=== PATIENT | female | born 1985 | race African-American/Black ===

== ENCOUNTER 2016-09-14 18:55 | Emergency (ER) | payer OTHER ==
--- NOTE | ~2016-09-14 | US61 ---
[facility] A Service of [facility] RADIOLOGY TEXT RESULTS PATIENT: PANCHO BETANCUR LOCATION: [facility] : [birth year] UNIT #: [id number] AGE: [address]: Andrews Villavicencio MD SEX: F ORDER DR: [id number] [facility] [address] [place], [place] [address] [id number] E MR#: [id number] Acc #: [id number] NAME: PANCHO BETANCUR : 1985 SEX: F STUDY DATE/TIME: 09/14/2016 20:00 UNIT: [facility] ROOM: STUDY DESCRIPTION: US /Mat <14Wk / Attending Physician: Marky Villavicencio M.D. Ordering Physician: Ed Doctor [id number] [facility] Primary Care Physician: Roe Grover Jr., A.P.R.N. MEDICAL IMAGING REPORT This report is preliminary unless electronic signature is present EXAM Ultrasound pelvis, early assessment, 09/14/2016 HISTORY 31-year-old female in the ED complaining of abdomen pain, check complaining of 2-day history of low abdomen pain during early . TECHNIQUE Pelvic ultrasound examination was performed transabdominally. FINDINGS The examination shows a left adnexal region gestational sac with a living embryo, gestational age of approximately 9 weeks, 2 days with embryonic heart rate of 82 beats per minute. The sac is positioned between the uterus and left ovary. The endometrial cavity is empty with no visible sac or fluid, uterus is displaced to the right of midline. The findings are highly concerning for left tubal ectopic . Despite the advanced gestational age, little to no free fluid is visible within the pelvis. The right ovary and left ovary each appear normal. I have discussed the findings by telephone with Dr. Villavicencio in the ED prior to this dictation at 20:45 hours on 09/14/2016. IMPRESSION Ultrasound findings highly concerning for advanced stage left tubal ectopic at about 9 weeks. Living gestation with embryonic heart rate of 82 beats per minute positioned between the left uterus and left ovary. No significant pelvic hematoma. Endometrial cavity appears empty. STAT * RESULT [facility] A Service of [facility] RADIOLOGY TEXT RESULTS PATIENT: PANCHO BETANCUR LOCATION: [facility] : [birth year] UNIT #: [id number] AGE: [address]: Andrews Villavicencio MD SEX: F ORDER DR: Dictated by... Willy Olson M.D. THIS IS AN ELECTRONICALLY VERIFIED REPORT Willy Olson M.D. at 09/14/2016 10:02 PM Aliza TD: 09/14/2016 21:00 JOB #: [id number] MEDICAL IMAGING REPORT Page 1 of 1 COPY
[2016-09-14 19:33] LABS: URINE SOURCE CLEAN CATCH
[2016-09-14 19:53] LABS: BASOPHIL% 0.5 % (0-2.5); EOSINOPHIL# 0.2 X10e3 (0-0.7); EOSINOPHIL% 2.7 % (0.0-7.0); HEMATOCRIT 37.6 % (35.0-45.0); HEMOGLOBIN 12.7 gm/dL (12.0-16.0); LYMPHOCYTE# 1.5 X10e3 (1.0-3.5); LYMPHOCYTE% 20.8 % (17.0-45.0); MEAN CELL VOLUME 89.2 FL (83-96); MEAN CORPUSCULAR HGB CONC 33.7 g/dL (30-36); MEAN PLATELET VOLUME 9.1 FL (6.5-11.5); MONOCYTE# 0.4 X10e3 (0-1.0); MONOCYTE% 6.3 % (3.0-12.0); NEUTROPHIL# 4.9 X10e3 (1.5-7.1); NEUTROPHIL% 69.7 % (40-75); PLATELET COUNT 231 X10e3 (140-420); RED BLOOD COUNT 4.22 X10e (3.90-5.30); RED CELL DISTRIBUTION WIDTH 13.1 % (11.0-15.5); WHITE BLOOD COUNT 7.1 X10e3 (4.0-10.5)
[2016-09-14 19:54] LABS: DIFF IND NO
[2016-09-14 19:55] LABS: URINE APPEARANCE CLEAR; URINE BILIRUBIN NEG (NEG); URINE BLOOD NEG (NEG); URINE COLOR YELLOW; URINE GLUCOSE NEG (NEG); URINE KETONE TRACE (NEG); URINE LEUKOCYTE ESTERASE 2+ (NEG); URINE NITRATE NEG (NEG); URINE PROTEIN NEG (NEG); URINE SPECIFIC GRAVITY 1.028 (1.003-1.035)
[2016-09-14 19:57] LABS: CULTURE INDICATED? YES; URINE BACTERIA AUWI 1+ (NEGATIVE); URINE SQUAMOUS EPITHELIAL CELL FEW /[HPF]
[2016-09-14 20:24] LABS: BUN/CREATININE RATIO 13.33; CALCIUM SERUM 8.7 mg/dL (8.4-10.2); CREATININE SERUM 0.6 mg/dL (0.6-1.4); GLOM FILT RATE Estimated 141.8 mL/min (>60); POTASSIUM 3.8 mmol/L (3.5-5.1)
== END 2016-09-14 23:35 | disposition short-term general hospital (02) ==
LOC: CED 18:55
PROVIDERS: Emergency Medicine
DX: O00.10 Tubal pregnancy without intrauterine pregnancy (principal); G40.909 Epilepsy, unspecified, not intractable, without status epilepticus; F17.210 Nicotine dependence, cigarettes, uncomplicated
CPT/HCPCS: 36415; 76801; 80048; 81003; 84702; 84703; 85025; 87086; 96361; 96374; 99284; J2550

== ENCOUNTER 2016-09-19 02:38 | Emergency (ER) | payer OTHER ==
[~2016-09-19] VITALS: Ht 170.2 cm; Wt 72.6 kg
--- NOTE | ~2016-09-19 | CT2 ---
[facility] A Service of [facility] RADIOLOGY TEXT RESULTS PATIENT: PANCHO BETANCUR LOCATION: [facility] : 87 UNIT #: [id number] AGE: [address]: Vamshi Bonilla DO SEX: F ORDER DR: [id number] [facility] [address] [place], [place] [address] [id number] E MR#: [id number] Acc #: [id number] NAME: PANCHO BETANCUR : 1985 SEX: F STUDY DATE/TIME: 09/19/2016 4:15 UNIT: [facility] ROOM: STUDY DESCRIPTION: CT Abd and Pelv W Cont Attending Physician: Vamshi Bonilla D.O. Ordering Physician: Vamshi Bonilla D.O. Primary Care Physician: Roe Grover Jr., A.P.R.N. MEDICAL IMAGING REPORT This report is preliminary unless electronic signature is present EXAM CT abdomen and pelvis with contrast. INDICATIONS Painful urination for the past week with generalized abdominal pain. PROCEDURE Contrast-enhanced CT of the abdomen and pelvis. This CT exam was performed with one or more of the following radiation dose reduction techniques: automatic exposure control, adjustment of mA and/or kV according to patient size, and iterative reconstruction. COMPARISON None. FINDINGS Abdomen with contrast: Included lung bases are clear. Liver enlarged measuring 21.1 cm. Spleen, kidneys, adrenal glands, pancreas, gallbladder show no acute abnormalities. Bowel loops are nondilated. Moderate colonic stool. Appendix is not well seen on this study. Pelvis with contrast: No pelvic mass. No aggressive appearing bone lesion. No appreciable bladder wall thickening. IMPRESSION 1. No definite acute findings. 2. Hepatomegaly. Dictated by... Marky Soliz M.D. [facility] A Service of [facility] RADIOLOGY TEXT RESULTS PATIENT: PANCHO BETANCUR LOCATION: [facility] : 87 UNIT #: [id number] AGE: [address]: Hottman,Vamshi M DO SEX: F ORDER DR: THIS IS AN ELECTRONICALLY VERIFIED REPORT Marky Soliz M.D. at 09/19/2016 10:00 PM TORI/[place] TD: 09/19/2016 10:34 JOB #: [id number] MEDICAL IMAGING REPORT Page 1 of 1 COPY
[2016-09-19 03:31] LABS: URINE SOURCE CLEAN CATCH
[2016-09-19 03:38] LABS: BASOPHIL% 0.6 % (0-2.5); EOSINOPHIL# 0.1 X10e3 (0-0.7); EOSINOPHIL% 2.2 % (0.0-7.0); HEMATOCRIT 34.4 % (35.0-45.0); HEMOGLOBIN 11.5 gm/dL (12.0-16.0); LYMPHOCYTE# 0.9 X10e3 (1.0-3.5); LYMPHOCYTE% 23.6 % (17.0-45.0); MEAN CELL VOLUME 89.3 FL (83-96); MEAN CORPUSCULAR HGB CONC 33.6 g/dL (30-36); MEAN PLATELET VOLUME 8.6 FL (6.5-11.5); MONOCYTE# 0.3 X10e3 (0-1.0); MONOCYTE% 7.2 % (3.0-12.0); NEUTROPHIL# 2.7 X10e3 (1.5-7.1); NEUTROPHIL% 66.4 % (40-75); PLATELET COUNT 211 X10e3 (140-420); RED BLOOD COUNT 3.85 X10e (3.90-5.30)
[2016-09-19 03:41] LABS: DIFF IND NO
[2016-09-19 03:45] LABS: URINE APPEARANCE CLEAR; URINE BILIRUBIN NEG (NEG); URINE BLOOD 3+ (NEG); URINE COLOR RED; URINE GLUCOSE NEG (NEG); URINE KETONE NEG (NEG); URINE LEUKOCYTE ESTERASE 2+ (NEG); URINE NITRATE NEG (NEG); URINE PROTEIN 2+ (NEG)
[2016-09-19 03:48] LABS: CULTURE INDICATED? YES; URBCS1 AUWI INNUM /[HPF] (0-2); URINE BACTERIA AUWI NEG (NEGATIVE); URINE SQUAMOUS EPITHELIAL CELL OCC /[HPF]
[2016-09-19 04:01] LABS: ALBUMIN SERUM 3.4 g/dL (3.5-5.0); ALKALINE PHOSPHATASE 55 U/L (32-92); ALT (SGPT) 42 U/L (10-40); AST (SGOT) 20 U/L (10-42); BILIRUBIN,TOTAL 0.6 mg/dL (0.2-2.0); BLOOD UREA NITROGEN 9 mg/dL (9-23); BUN/CREATININE RATIO 11.25; CALCIUM SERUM 8.3 mg/dL (8.4-10.2); CARBON DIOXIDE 26 mmol/L (22-31); CHLORIDE 103 mmol/L (100-111); CREATININE SERUM 0.8 mg/dL (0.6-1.4); GLOM FILT RATE Estimated 114.8 mL/min (>60); GLUCOSE FASTING 100 mg/dL (70-110); PROTEIN TOTAL SERUM 7.1 g/dL (6.0-8.3); SODIUM 133 mmol/L (135-145)
[2016-09-19 04:02] LABS: BILIRUBIN, DIRECT <0.1 mg/dL (0.0-0.2); BILIRUBIN,INDIRECT 0.5 mg/dL (0.0-0.9)
[2016-09-21 00:47] LABS: CHLAMYDIA TRACH Not Detected (Not Detected); N GONOR Not Detected (Not Detected)
== END 2016-09-19 05:55 | disposition home or self-care (01) ==
LOC: CED 02:38
PROVIDERS: Emergency Medicine
DX: G89.18 Other acute postprocedural pain (principal); R10.2 Pelvic and perineal pain; N99.820 Postprocedural hemorrhage of a genitourinary system organ or structure following a genitourinary system procedure; N39.0 Urinary tract infection, site not specified; F17.200 Nicotine dependence, unspecified, uncomplicated; Z98.890 Other specified postprocedural states
CPT/HCPCS: 36415; 74177; 80048; 80076; 81003; 85025; 87086; 87491; 87591; 87808; 87905; 96361; 96365; 96375; 99284; J0696; J2270; J2405; Q9967